=== PATIENT | female | born 1980 | race Two or more races ===

== ENCOUNTER → 2024-07-19 | Outpatient (CLI) | payer MEDICAID, SELFPAY ==
--- NOTE | 2024-07-19 13:00 | XR_ITS ---
Examination: Breast ultrasound complete, bilateral Date and time of exam: February 17, 2024 1414 hours INDICATIONS: Mammogram June 13, 2024 3 mm circumscribed nodule upper left breast MLO view Technique: Real-time grayscale ultrasonographic imaging bilateral breasts, including all 4 quadrants as well as nipple retroareolar and axillary regions. Findings: Sonographic images right and left breast demonstrated no cystic or solid masses IMPRESSION: BI-RADS Category 1: Negative studies
== END | disposition home or self-care (01) ==
PROVIDERS: PCP Internal Medicine; Referring Provider Nurse Practitioner Family; Visit Provider Nurse Practitioner Family
DX: N63.20 Unspecified lump in the left breast, unspecified quadrant (principal)
CPT/HCPCS: 76641

== ENCOUNTER 2024-10-08 08:51 | Emergency (ER) | payer MEDICAID, SELFPAY ==
[2024-10-08 09:04] VITALS: BP 127/82; PULSE 73; RESP 16; TEMP 36.8; O2SAT 97; BMI 32.8
--- NOTE | 2024-10-08 09:17 | PD.EDRME ---
Rapid Medical Screening Exam RME Arrival date/time: 10/08/24 08:51 44 yo f with c/o of RLQ for 2 days, hx of cirrhosis I have greeted and performed a focused initial assessment of this patient. A comprehensive ED assessment and evaluation of the patient, analysis of all test results, and completion of the medical decision making process will be conducted by additional ED providers. Chief Complaint: Abdominal Pain Time Seen by Provider: 10/08/24 09:03 Vital signs: Vital Signs Temperature 98.2 F 10/08/24 09:04 Pulse Rate 73 10/08/24 09:04 Respiratory Rate 16 10/08/24 09:04 Blood Pressure 127/82 10/08/24 09:04 Pulse Oximetry (%) 97 10/08/24 09:04 Oxygen Delivery Method Room Air 10/08/24 09:04
[2024-10-08 09:35] LABS: Collection Type, Urine Voided
[2024-10-08 09:49] LABS: Basophils % (Auto) 1 % (0-2.5); Eosinophils # (Auto) 0.1 Thou/mm3 (0.0-0.5); Eosinophils % (Auto) 2 % (0-10); Hematocrit 35.8 % (36.0-46.0); Hemoglobin 11.8 g/dL (12.0-16.0); Immature Granulocytes % (Auto) 1 % (0-0); Immature Granulocytes Auto 0.03 Thou/mm3 (0.00-0.00); Lymphocytes # (Auto) 1.4 Thou/mm3 (1.0-4.8); Lymphocytes % (Auto) 25 % (10-50); Mean Corpuscular Hemoglobin 29.4 pg (25.0-35.0); Mean Corpuscular Volume 89 fL (80-100); Monocytes # (Auto) 0.3 Thou/mm3 (0.0-0.8); Monocytes % (Auto) 6 % (0-12); Neutrophils # (Auto) 3.8 Thou/mm3 (1.8-7.7); Neutrophils % (Auto) 67 % (37-80); Nucleated Red Blood Cell % 0 /100 WBC (0); Platelet Count 119 Thou/mm3 (140-440); RDW Standard Deviation 45.6 fL (36.4-46.3); Red Blood Count 4.02 Miln/mm3 (4.00-5.20); White Blood Count 5.8 Thou/mm3 (3.6-11.0)
[2024-10-08 10:06] LABS: Alanine Aminotransferase 16 U/L (10-49); Albumin, Serum 4.1 gm/dL (3.5-5.0); Albumin/Globulin Ratio 1.3 (1.2-2.2); Alkaline Phosphatase 126 U/L (46-116); Anion Gap 5 (7-16); Aspartate Amino Transferase 24 U/L (0-34); BUN/Creatinine Ratio 27 Ratio (12-20); Bilirubin,Total 0.4 mg/dL (0.3-1.2); Blood Urea Nitrogen 19 mg/dL (9-23); Calcium 8.8 mg/dL (8.3-10.6); Calcium (Corrected) 8.8 mg/dL (8.5-10.1); Carbon Dioxide 26.8 mMol/L (20.0-31.0); Chloride 107 mMol/L (98-107); Creatinine (Component) 0.7 mg/dL (0.6-1.3); Estimated Creatinine Clearance 118.5 mL/min (>60); Globulin 3.1 gm/dL (2.3-3.5); Glucose 99 mg/dL (74-106); Osmolality,Calculated 279 (275-295); Potassium 4.6 mMol/L (3.4-5.1); Sodium 139 mMol/L (136-145); Total Protein 7.2 gm/dL (5.7-8.2); eGFR > 60 See Note
[2024-10-08 10:07] LABS: Bacteria,Urine Rare; Bilirubin,Urine Negative (Negative); Blood,Urine Negative (Negative); Clarity,Urine Clear (Clear/Hazy); Color,Urine Lt-Yellow (Lt Yel-Yel); Glucose, Urine Negative (Negative); Ketones,Urine Negative (Negative); Leukocyte Esterase,Urine Negative (Negative); Nitrite,Urine Negative (Negative); Protein,Urine Negative (Neg - Trace); RBC,Urine 3 /hpf (0-3); Specific Gravity,Urine 1.024 (1.001-1.035); Squamous Epithelial Cell,Urine 7 /hpf (0-5); Urobilinogen,Urine Negative mg/dL (0.0-1.0); WBC,Urine 1 /hpf (0-5)
--- NOTE | 2024-10-08 10:16 | XR_ITS ---
Examination: Abdomen sonogram, Limited Date and time of exam: 10/08/2024, 10:49 AM INDICATION: Abdominal pain COMPARISON: 12/31/2023 Technique: Real-time briseno scale transabdominal sonographic images of the upper abdomen obtained. Findings: Liver measures 15.9 cm and is heterogeneously echogenic with nodular contour of the Gallbladder is mildly distended at 10.5 cm. Multiple mobile stones are seen within the gallbladder measuring up to 7 mm. Gallbladder wall is thickened to 6 mm. Normal-appearing common bile duct and pancreatic head. Normal hepatopedal flow in a normal appearing 9 mm portal vein. IVC appears patent. IMPRESSION: Heterogeneous hyperechoic liver with nodular contour. Findings consistent with cirrhosis. Cholelithiasis with nonspecific gallbladder wall thickening.
[2024-10-08 10:29] LABS: HCG,Qualitative Serum Negative
[2024-10-08 11:35] VITALS: BP 125/84; PULSE 70; RESP 16; TEMP 36.7; O2SAT 97
[2024-10-08 12:39] VITALS: BP 141/77; PULSE 61; RESP 17; TEMP 36.7; O2SAT 100
--- NOTE | 2024-10-08 13:25 | XR_ITS ---
Examination: Abdomen AP single view Technique: AP portable supine abdomen, single view Exam date and time: 10/08/2024, 1:58 PM INDICATION: Pain. Nonobstructive nondilated bowel gas pattern with diffuse fecal material in the colon. No evidence of free air. No evidence of radiopaque masses. No acute bony abnormality. IMPRESSION: Nonobstructive nondilated bowel gas pattern. No free air. Diffuse fecal material in the colon.
--- NOTE | 2024-10-08 13:34 | PD.EDABDPN ---
ED Abdominal Pain RME/HPI General Chief Complaint: Abdominal Pain Stated complaint: ABD PAIN X5HR Time seen by provider: 10/08/24 09:03 Arrival date/time: 10/08/24 08:51 This is a 44-year-old female that comes in with complaints started last night. Patient states she feels better now she took some ibuprofen this morning. Patient has a hx alcohol abuse disorder, alcoholic liver cirrhosis, multiple admissions for decompensated alcoholic liver cirrhosis in the past, and hx of previously receiving paracentesis regularly every 3 weeks. Patient reports that she has been followed by doctor in [place] that she sees every 6 months for her liver cirrhosis. Patient had a biopsy done of her liver 07/2023 which was positive for cirrhotic liver. RME / HPI RME / HPI narrative: 10/08/24 08:51 44 yo f with c/o of RLQ for 2 days, hx of cirrhosis I have greeted and performed a focused initial assessment of this patient. A comprehensive ED assessment and evaluation of the patient, analysis of all test results, and completion of the medical decision making process will be conducted by additional ED providers. Related Data Home Medications ?Medication ?Instructions ?Recorded ?Confirmed albuterol sulfate 90 mcg/actuation 2 puff inhalation Q4HR PRN 07/20/23 07/20/23 aerosol inhaler Shortness Of Breath Or Wheezing benzonatate 100 mg capsule 100 mg PO QDAY PRN Cough 07/20/23 07/20/23 hydroxyzine HCl 10 mg tablet 10 mg PO Q8HR PRN Itching 07/20/23 07/20/23 thiamine HCl (vitamin B1) 100 mg 250 mg PO DAILY 07/20/23 10/08/24 tablet bumetanide 0.5 mg tablet mg 10/08/24 spironolactone 25 mg tablet mg 10/08/24 Previous Rx's ?Medication ?Instructions ?Recorded folic acid 1 mg tablet 1 mg PO DAILY #30 tabs 03/17/23 hydrocodone 5 mg-acetaminophen 325 1 tab PO Q6H PRN pain #6 tabs 10/08/24 mg tablet ondansetron 4 mg disintegrating 4 mg PO Q6H PRN nausea and 10/08/24 tablet vomiting #10 tabs sennosides 8.6 mg-docusate sodium 1 tab-cap PO BID #10 tabs 10/08/24 50 mg tablet (Senna-S) Allergies Allergy/AdvReac Type Severity Reaction Status Date / Time No Known Allergies Allergy Verified 10/08/24 08:53 Review of Systems Review of Systems Systems Reviewed: All systems reviewed, normal except as documented Past Medical History Surgical History OTHER SURGICAL HX: As in the history of present illness ED Exam General General appearance: Present alert and in no apparent distress Head Head exam: Present atraumatic Eye Eye exam: Present normal appearance, PERRL and EOMI ENT ENT exam: Present normal exam, normal oropharynx and mucous membranes moist Neck Neck exam: Present normal inspection, full ROM and trachea midline Chest Chest inspection: Present normal inspection and symmetric chest wall rise Respiratory Respiratory exam: Present normal lung sounds bilaterally Cardiovascular Cardiovascular exam: Present regular rate and normal rhythm Abdominal Exam Abdominal exam: Present soft and other (no pain to palpation ) Extremities Exam Extremities exam: Present normal inspection and full ROM Back Exam Back exam: Present normal inspection and full ROM Neurological Exam Neurological exam: Present alert, oriented X3 and CN II-XII intact Psychiatric Psychiatric exam: Present normal affect and normal mood Skin Skin exam: Present warm, dry, intact and normal color Course Quality Measures none Orders Category Date Time Status KUB [XR abdomen 1V] Stat Exams 10/08/24 13:25 Completed US abdomen limited Stat Exams 10/08/24 10:16 Completed CBC Stat Lab 10/08/24 09:30 Completed CMP [Comprehensive Metabolic Panel] Stat Lab 10/08/24 09:30 Completed HCG,Qualitative Serum Stat Lab 10/08/24 09:00 Completed Lipase Stat Lab 10/08/24 09:30 Completed UA [Urinalysis] Stat Lab 10/08/24 09:18 Completed Urine Culture Stat Lab 10/08/24 09:18 Received Ketorolac Inj [Toradol Inj] Med 10/08/24 14:40 Discontinued 60 mg IM X1 ONE Lactulose Syrup [Enulose Syrup] Med 10/08/24 14:40 Discontinued 10 gm PO X1 ONE Metoclopramide Inj [Reglan Inj] Med 10/08/24 14:40 Discontinued 10 mg IM X1 ONE Vital Signs Vital signs: Vital Signs Temperature 98.2 F 10/08/24 09:04 Pulse Rate 73 10/08/24 09:04 Respiratory Rate 16 10/08/24 09:04 Blood Pressure 127/82 10/08/24 09:04 Pulse Oximetry (%) 97 10/08/24 09:04 Oxygen Delivery Method Room Air 10/08/24 09:04 Abdominal Pain MDM MDM Narrative MDM Narrative:: Labs reviewed. Patient's white count is 5.8, hemoglobin and hematocrit are 11.8 and 35.8 platelets 119, BMP is unremarkable with a slight elevation of alk phos 126 AST and ALT within normal limits. T. bili unremarkable, urine unremarkable. Lipase 54. US of abdomen shows Heterogeneous hyperechoic liver with nodular contour. Findings consistent with cirrhosis. Cholelithiasis with nonspecific gallbladder wall thickening. Patient reports history of constipation. KUB ordered. Patient states that she has been taking Colace to help with this. Patient reports that she is feeling better now. kub: INDICATION: Pain. Nonobstructive nondilated bowel gas pattern with diffuse fecal material in the colon. No evidence of free air. No evidence of radiopaque masses. No acute bony abnormality. IMPRESSION: Nonobstructive nondilated bowel gas pattern. No free air. Diffuse fecal material in the colon. US abdomen: Findings: Liver measures 15.9 cm and is heterogeneously echogenic with nodular contour of the Gallbladder is mildly distended at 10.5 cm. Multiple mobile stones are seen within the gallbladder measuring up to 7 mm. Gallbladder wall is thickened to 6 mm. Normal-appearing common bile duct and pancreatic head. Normal hepatopedal flow in a normal appearing 9 mm portal vein. IVC appears patent. IMPRESSION: Heterogeneous hyperechoic liver with nodular contour. Findings consistent with cirrhosis. Cholelithiasis with nonspecific gallbladder wall thickenin Will treat patient with Toradol and Reglan injection for pain. I will give patient a dose of lactulose prior to leaving. I was given to give patient a dose of Romayor. Patient is driving and not able to take Romayor. Will send patient with a few Romayor pills to take at home. I explained to patient this make her nauseous. Patient told to follow-up with primary provider in 1 to 2 days. Come back to the emergency room if symptoms change or worsen. Lipase was initially not ordered. Patient was already eating and drinking with no issues. Lipase was 54 Patient data External records reviewed:: [facility] previous records Clinical information provided by:: patient Social determinants that could affect healthcare access:: none Patient has the following chronic illnesses:: see hpi How is presenting disease/condition affected by chronic disease/condition?: exacerbated by Evaluation data The following diagnostics were reviewed and interpreted by me:: lab results and radiology exam(s) Lab and/or radiology exams considered but not ordered:: none Interpretation Summary: see note Medications / Prescriptions Medications or Prescriptions considered but not ordered:: none Medication administrations:: Medication Administration History Discontinued Medications Ketorolac Tromethamine (Ketorolac Inj 60 Mg/2 Ml Vial) 60 mg IM X1 ONE Stop: 10/08/24 14:41 Last Admin: 10/08/24 15:28 Dose: 60 mg Documented By: JUSTICE Lactulose (Lactulose Syrup 20 Gm/30 Ml Udc) 10 gm PO X1 ONE; Protocol Stop: 10/08/24 14:41 Last Admin: 10/08/24 15:28 Dose: 10 gm Documented By: JUSTICE Metoclopramide HCl (Metoclopramide Inj 5 Mg/Ml Vial 2 Ml) 10 mg IM X1 ONE; Protocol Stop: 10/08/24 14:41 Last Admin: 10/08/24 15:28 Dose: Not Given Documented By: JUSTICE Non-Admin Reason: Patient Refused see note Consultations Consultation(s) initiated? (list below): No Diagnosis Differential diagnosis abdominal pain: abdominal pain, acute appendicitis, calculus of kidney, pancreatitis and other (cholecytitis ) Most likely diagnosis given after review of the tests above:: cholelithiasis, constipation Admission Indicated Admission indicated?: not indicated Admission Request Was there a request for admission?: No Disposition Plan Disposition Plan: Discharge Discharge Attestation Discharge Attestation: The patient and all family members were given an opportunity to ask questions and understood the discharge instructions. Discharge instructions specifically effects, indications for sooner follow up or return to the emergency department, and the expected course of current diagnosis. Patient condition: Stable Discharge Plan Plan Patient Disposition: HOME (Self Care) Patient condition on transfer: Stable Prescriptions/Referrals Prescriptions/Med Rec: New hydrocodone-acetaminophen 5-325 mg tablet 1 tab PO Q6H MDD 4 PRN (Reason: pain) Qty: 6 0RF sennosides-docusate sodium [Senna-S] 8.6-50 mg tablet 1 tab-cap PO BID Qty: 10 0RF ondansetron 4 mg tablet,disintegrating 4 mg PO Q6H PRN (Reason: nausea and vomiting) Qty: 10 0RF No Action folic acid 1 mg tablet 1 mg PO DAILY Qty: 30 3RF thiamine HCl (vitamin B1) 100 mg tablet 250 mg PO DAILY benzonatate 100 mg capsule 100 mg PO QDAY PRN (Reason: Cough) Patient Comments: TAKE 1 CAPSULE BY MOUTH EVERY DAY AT BEDTIME NEEDED FOR COUGH albuterol sulfate 90 mcg/actuation HFA aerosol inhaler 2 puff INHALATION Q4HR PRN (Reason: Shortness Of Breath Or Wheezing) Patient Comments: INHALE 2 PUFFS BY MOUTH EVERY 4 TO 6 HOURS NEEDED FOR SHORTNESS OF BREATH FOR WHEEZING FOR COUGH hydroxyzine HCl 10 mg tablet 10 mg PO Q8HR PRN (Reason: Itching) spironolactone 25 mg tablet Patient Comments: TAKE 1 TABLET BY MOUTH ONCE DAILY bumetanide 0.5 mg tablet Patient Comments: TAKE 1 TABLET BY MOUTH ONCE DAILY Referrals: Joselito Martinez MD [Primary Care Provider] - In 1 week Problem List Clinical Impression: Gallstones, Constipation, Cirrhosis of liver Patient/Caregiver Discharge Instructions Discharge Activity: activity as tolerated Education Materials: ED Cirrhosis, ED Gallstones with Biliary Colic Additional Instructions: Follow up with primary provider in 1-2 days. Come back to ED if symptoms change or worsen. Please make an appointment with primary provider. Print Language: Afghan Stand Alone Forms: Jennifer Award Info., Patient Portal Info Letter PA/SKEIN WINDING OPERATOR Supervising Physician ELDER/SKEIN WINDING OPERATOR Supervising Physician: parvin
[2024-10-08 14:07] VITALS: BP 128/76; PULSE 90; RESP 18; TEMP 36.7; O2SAT 98
[2024-10-08] MEDS: KETOROLAC INJ 60 MG/2 ML VIAL IM (15:28)
[2024-10-08] MEDS: LACTULOSE SYRUP 20 GM/30 ML UDC 10 GM PO (15:28)
[2024-10-08 16:00] VITALS: BP 127/81; PULSE 76; RESP 20; TEMP 36.8; O2SAT 96
[2024-10-08 16:00] LABS: Lipase 54 U/L (12-53)
== END 2024-10-08 16:10 | disposition home or self-care (01) ==
PROVIDERS: Physician Assistant; Emergency Provider Emergency Medicine; PCP Internal Medicine
DX: K74.60 Unspecified cirrhosis of liver (principal); K59.00 Constipation, unspecified; K80.20 Calculus of gallbladder without cholecystitis without obstruction
CPT/HCPCS: 36415; 74018; 76705; 80053; 81001; 83690; 84703; 85025; 87086; 96372; 99284; J1885; A9270

== ENCOUNTER → 2024-11-28 | Outpatient (CLI) | payer MEDICAID, SELFPAY ==
--- NOTE | 2024-11-28 09:30 | XR_ITS ---
Examination: Abdomen sonogram, complete Date and time of exam: November 28, 2024 0948 hours INDICATIONS: Diagnosis cirrhosis, diagnosis cholecystitis. Technique: Multiple real-time grayscale transabdominal sonographic images of the abdomen have been obtained. Findings: Multiple gallstones Gallbladder wall 0.3 cm no edema Common bile duct 0.6 cm Pancreatic head 2.4 cm Aorta not enlarged Liver 16.7 cm irregular contour fatty infiltration Normal hepatopedal portal venous flow Patent IVC Right kidney 11.5 cm cortex 1.7 cm Left kidney 11.1 cm cortex 2.5 cm Mild renal parenchymal scar formation Spleen 11.2 cm IMPRESSION: Cholelithiasis Abnormal enlargement common bile duct 0.6 cm, clinical correlation advised Consider MRCP follow-up
== END | disposition home or self-care (01) ==
PROVIDERS: PCP Surgery; Referring Provider Surgery; Visit Provider Surgery
DX: K80.80 Other cholelithiasis without obstruction (principal); K83.8 Other specified diseases of biliary tract
CPT/HCPCS: 76700